=== PATIENT | female | born 1980 | race Caucasian/White ===

== ENCOUNTER 2017-07-18 02:28 | Inpatient (IN) | payer OTHER ==
[2017-07-18] MEDS ORDERED: PRENA1 CHEW TA1.4 M1 PO (04:04)
[2017-07-19] MEDS ORDERED: IBUPROFEN800 M1 PO (08:51)
== END 2017-07-19 15:19 | DRG 774 ==
LOC: LDR 02:28 → OBGD 02:28 → LDR 02:32 → OBGD 08:45 → LDR 07-23 06:00
PROVIDERS: ADMIT Advanced Practice Midwife
PROC: 10E0XZZ Delivery of Products of Conception, External Approach (ICD-10-PCS; principal; 2017-07-18)
PROC: 0KQM0ZZ Repair Perineum Muscle, Open Approach (ICD-10-PCS; 2017-07-18)
DX: O98.82 Other maternal infectious and parasitic diseases complicating childbirth (principal); B95.1 Streptococcus, group B, as the cause of diseases classified elsewhere; Z3A.38 38 weeks gestation of pregnancy; Z37.0 Single live birth
CPT/HCPCS: J2540; J7050